=== PATIENT | female | born 1995 | race Caucasian/White ===

== ENCOUNTER 2021-10-12 16:15 | Emergency (ER) | payer OTHER ==
[~2021-10-12 16:15] MED LIST: CYCLOBENZAPRINE10 MG PO; FLOMAX0.4 MG PO; IBU800 MG PO; MACROBID 100 M100 MG PO; NORCO 5-325 TA1 EACH PO; PERCOCET 5/325 T1 EA PO; TORADOL 10 MG T10 MG PO
[2021-10-12 16:54] LABS: HEMOGLOBIN 12.6 gm/dl (12.3-15.3); RED BLOOD COUNT 4.12 M/UL (4.00-5.10); WHITE BLOOD COUNT 10.3 K/UL (4.5-11.0)
[2021-10-12 17:17] LABS: BUN/CREATININE RATIO 12 (0-10)
[2021-10-12] MEDS ORDERED: OMNICEF 300 MG300 MG PO (19:54)
[2021-10-12] MEDS ORDERED: ZOFRAN 4 MG TAB4 MG PO (19:54)
[2021-10-12] MEDS ORDERED: TORADOL 10 MG T10 MG PO (19:54)
[2021-10-12] MEDS ORDERED: HYDROCODON-ACE1 EAC2 PO (19:56)
== END 2021-10-12 20:10 | disposition home or self-care (01) ==
LOC: ER1 16:15
PROVIDERS: Nurse Practitioner
DX: N13.2 Hydronephrosis with renal and ureteral calculous obstruction (principal); Z87.442 Personal history of urinary calculi
CPT/HCPCS: 80053; 81001; 84703; 85025; 96374; 96375; 99284; J0696; J1885; J2405